=== PATIENT | male | born 1970 | race Caucasian/White ===

== ENCOUNTER 2017-10-08 19:09 | Emergency (ER) | payer OTHER ==
[~2017-10-08] VITALS: Ht 177.8 cm; Wt 77.3 kg
[~2017-10-08 19:09] MED LIST: ADVIL200 M1 PO; MOTRIN800 MG PO; NAPROXEN500 MG PO; TYLENOL325 M1 PO; VALIUM2 MG PO
[2017-10-08 19:17] VITALS: BP 133/100
== END 2017-10-08 21:38 | disposition home or self-care (01) ==
LOC: EME 19:09
DX: I80.8 Phlebitis and thrombophlebitis of other sites (principal)
CPT/HCPCS: 99281; 99284